=== PATIENT | female | born 1970 | race Caucasian/White ===

== ENCOUNTER → 2017-07-06 | Outpatient (CLI) | payer OTHER ==
--- NOTE | 2017-07-06 14:06 | KCIC ---
CT HEAD INDICATION: History of fall, hit back of the head COMPARISON: None Available. TECHNIQUE: 5 mm contiguous axial images were obtained from the skull base to the vertex. Exposure: One or more of the following individualized dose reduction techniques were utilized for this examination: 1. Automated exposure control 2. Adjustment of the mA and/or kV according to patient size 3. Use of iterative reconstruction technique FINDINGS: No abnormal attenuation within the brain parenchyma. No evidence of acute intracranial hemorrhage. No extra-axial fluid collections. No mass effect or midline shift. Ventricular size is appropriate. Basal cisterns are patent. No fractures identified.Chavez-white differentiation is preserved.Globes and orbits are within normal limits. Paranasal sinuses and mastoid air cells are clear. IMPRESSION: Unremarkable CT examination of the head without contrast, as above. Specifically, no evidence of an acute intracranial abnormality. Electronically signed by: Cleveland Mcmullen MD (07/06/2017 2:03 PM) [id number]
== END | disposition home or self-care (01) ==
LOC: KCIC CT 13:37
PROVIDERS: ATTEND Preventive Medicine Occupational Medicine
DX: S09.90XD Unspecified injury of head, subsequent encounter (principal); R55 Syncope and collapse; Z91.81 History of falling
CPT/HCPCS: 70450